=== PATIENT | male | born 1945 | race Caucasian/White ===

== ENCOUNTER 2021-01-09 07:07 | Outpatient (REF) | payer OTHER, SELFPAY ==
[2021-01-09 07:29] LABS: MANUAL DIFF FLAG NO
[2021-01-09 07:33] LABS: Basophils Percent Auto 0.8 % (0-2); Eosinophils Absolute Auto 0.2 X10*3/uL (0.0-0.4); Hematocrit 44.8 % (42-52); Hemoglobin 14.6 g/dl (14.0-18.0); Imm Gran Abs Auto 0.01 X10*3/uL (0.00-0.03); Imm Gran Pct Auto 0.2 % (0.0-0.4); Lymphocytes Absolute Auto 1.1 X10*3/uL (1.2-4.9); Lymphocytes Percent Auto 22.1 % (20-40); Mean Corpuscular HGB Conc 32.6 g/dl (31.0-36.0); Mean Corpuscular Hemoglobin 28.9 pg (27.0-33.0); Mean Corpuscular Volume 88.7 fL (80-98); Mean Platelet Volume 10.3 fL (9.4-12.4); Monocytes Absolute Auto 0.4 X10*3/uL (0.1-1.2); Monocytes Percent Auto 8.6 % (2-11); Neutrophils Absolute Auto 3.3 X10*3/uL (2.0-8.3); Neutrophils Percent Auto 65.3 % (45-73); Platelet Count 151 X10*3/uL (160-400); Red Blood Count 5.05 X10*6/uL (4.60-5.80)
[2021-01-09 08:01] LABS: Alanine Aminotransferase 29 U/L (0-40); Albumin Level 4.2 g/dL (3.5-5.0); Alkaline Phosphatase 58 U/L (39-117); Anion Gap 10 (12-20); Aspartate Amino Transferase 28 U/L (5-37); Bilirubin Total 0.8 mg/dL (0.0-1.0); Blood Urea Nitrogen 15 mg/dL (9-16); Carbon Dioxide 30 mmol/L (22-29); Chloride 104 mmol/L (96-108); Cholesterol 177 mg/dL; Estimated Glomerular Filt Rate > 60; Glucose Fasting 96 mg/dL (60-99); HDL Cholesterol 68 mg/dL; LDL Cholesterol Calculated 95 mg/dl; Potassium 4.6 mmol/L (3.3-5.1); Sodium 139 mmol/L (135-145); Total Protein 6.4 g/dL (6.5-8.0); Triglycerides 70 mg/dL
[2021-01-09 08:23] LABS: Prostate Specific Antigen 2.71 ng/mL (<0.05-4.0)
== END 2021-01-09 07:08 | disposition home or self-care (01) ==
LOC: HO.LAB 07:07
PROVIDERS: PCP Internal Medicine; Visit Provider Internal Medicine
DX: I10 Essential (primary) hypertension (principal); E78.00 Pure hypercholesterolemia, unspecified; N40.0 Benign prostatic hyperplasia without lower urinary tract symptoms; M19.90 Unspecified osteoarthritis, unspecified site; Z12.5 Encounter for screening for malignant neoplasm of prostate
CPT/HCPCS: 36415; 80053; 80061; 84153; 85025

== ENCOUNTER 2022-04-04 07:03 | Outpatient (REF) | payer OTHER, SELFPAY ==
[2022-04-04 07:11] LABS: MANUAL DIFF FLAG NO
[2022-04-04 08:11] LABS: Basophils Absolute Auto 0.1 X10*3/uL (0.0-0.2); Basophils Percent Auto 1.2 % (0-2); Eosinophils Absolute Auto 0.2 X10*3/uL (0.0-0.4); Eosinophils Percent Auto 3.3 % (0-4); Imm Gran Abs Auto 0.01 X10*3/uL (0.00-0.03); Imm Gran Pct Auto 0.2 % (0.0-0.4); Lymphocytes Absolute Auto 1.3 X10*3/uL (1.2-4.9); Lymphocytes Percent Auto 24.5 % (20-40); Mean Corpuscular HGB Conc 32.6 g/dl (31.0-36.0); Mean Corpuscular Hemoglobin 28.6 pg (27.0-33.0); Mean Corpuscular Volume 87.8 fL (80.0-98.0); Mean Platelet Volume 10.7 fL (9.4-12.4); Monocytes Absolute Auto 0.5 X10*3/uL (0.1-1.2); Monocytes Percent Auto 9.1 % (2-11); Neutrophils Absolute Auto 3.2 x10*3/uL (2.0-8.3); Neutrophils Percent Auto 61.7 % (45-73); Platelet Count 180 X10*3/uL (160-400); Red Blood Count 5.24 X10*6/uL (4.60-5.80); Red Cell Distribution Width 13.8 % (11.0-16.0); White Blood Count 5.2 X10*3/uL (4.8-10.8)
[2022-04-04 08:55] LABS: Alanine Aminotransferase 24 U/L (0-40); Albumin Level 4.2 g/dL (3.5-5.0); Alkaline Phosphatase 57 U/L (39-117); Anion Gap 16 (12-20); Aspartate Amino Transferase 29 U/L (5-37); Blood Urea Nitrogen 12 mg/dL (9-16); Calcium 8.7 mg/dL (8.4-10.2); Carbon Dioxide 25 mmol/L (22-29); Chloride 104 mmol/L (96-108); Cholesterol 181 mg/dL; Estimated Glomerular Filt Rate > 60; Glucose Fasting 84 mg/dL (60-99); HDL Cholesterol 68 mg/dL; LDL Cholesterol Calculated 95 mg/dl; Potassium 4.6 mmol/L (3.3-5.1); Sodium 140 mmol/L (135-145); Total Protein 6.5 g/dL (6.5-8.0); Triglycerides 90 mg/dL
[2022-04-04 09:02] LABS: Prostate Specific Antigen 2.19 ng/mL (<0.05-4.0)
== END 2022-04-04 07:04 | disposition home or self-care (01) ==
LOC: HO.LAB 07:03
PROVIDERS: PCP Internal Medicine; Visit Provider Internal Medicine
DX: Z12.5 Encounter for screening for malignant neoplasm of prostate (principal); I10 Essential (primary) hypertension; E78.00 Pure hypercholesterolemia, unspecified; R35.1 Nocturia
CPT/HCPCS: 36415; 80053; 80061; 84153; 85025

== ENCOUNTER 2022-04-27 13:30 | Outpatient (REF) | payer OTHER, SELFPAY ==
[2022-04-27 14:28] LABS: Influenza A PCR NEGATIVE (Negative); Influenza B PCR NEGATIVE (Negative); Resp Syncy Virus RNA Qual PCR NEGATIVE (Negative); SARS COV2 PCR INHOUSE POSITIVE (Negative)
== END 2022-04-27 13:31 | disposition home or self-care (01) ==
LOC: HO.LNP 13:30
PROVIDERS: Visit Provider Internal Medicine
DX: Z20.822 Contact with and (suspected) exposure to COVID-19 (principal)
CPT/HCPCS: 0241U

== ENCOUNTER 2022-05-13 09:37 | Outpatient (REF) | payer OTHER, SELFPAY ==
[2022-05-13 09:53] LABS: COVID-19 Test Positive (Negative); IDNOW Serial# 16C4AD1C
== END 2022-05-13 09:38 | disposition home or self-care (01) ==
LOC: HO.LNP 09:37
PROVIDERS: Visit Provider Internal Medicine
DX: Z20.822 Contact with and (suspected) exposure to COVID-19 (principal)
CPT/HCPCS: 87635

== ENCOUNTER 2022-05-18 09:56 | Outpatient (REF) | payer OTHER, SELFPAY ==
[2022-05-18 10:26] LABS: COVID-19 Test Negative (Negative); IDNOW Serial# 16C4AD1C
== END 2022-05-18 09:57 | disposition home or self-care (01) ==
LOC: HO.LNP 09:56
PROVIDERS: Visit Provider Internal Medicine
DX: Z20.822 Contact with and (suspected) exposure to COVID-19 (principal)
CPT/HCPCS: 87635

== ENCOUNTER 2023-04-11 14:51 | Outpatient (REF) | payer OTHER, SELFPAY ==
--- NOTE | ~2023-04-11 | US_ITS ---
EXAMINATION: US VENOUS ULTRASOUND WITH DOPPLER LOWER EXTREMITY, LEFT CLINICAL INFORMATION: Left lower extremity edema and swelling COMPARISON: None available. TECHNIQUE: Ultrasound of the deep veins is performed from the hip to the calf with compression sonography and color and pulse Doppler assessment. Spectral analysis with color-flow imaging is performed. FINDINGS: There is normal venous compression and respiratory variation and augmented flow. The visualized common femoral vein, superficial femoral vein, profunda femoral vein, popliteal vein, and the trifurcation region shows no evidence of deep venous thrombosis. There is a complex fluid collection in the calf measuring 6.3 x 1.5 x 2.1 cm. If the patient's symptoms persist, followup ultrasound in 5 days 7 days might be of value to exclude proximal propagation from a non-visualized calf vein. US/US venous duplex LE IMPRESSION: No DVT demonstrated in the left lower extremity.
== END 2023-04-11 14:52 | disposition home or self-care (01) ==
LOC: HO.US 14:51
PROVIDERS: PCP Internal Medicine; Visit Provider Internal Medicine
DX: R22.41 Localized swelling, mass and lump, right lower limb (principal)
CPT/HCPCS: 93971

== ENCOUNTER 2023-05-20 07:05 | Outpatient (REF) | payer OTHER, SELFPAY ==
[2023-05-20 07:33] LABS: MANUAL DIFF FLAG NO
[2023-05-20 08:03] LABS: Basophils Absolute Auto 0.1 X10*3/uL (0.0-0.2); Basophils Percent Auto 1.3 % (0-2); Eosinophils Absolute Auto 0.2 X10*3/uL (0.0-0.4); Eosinophils Percent Auto 3.5 % (0-4); Hematocrit 46.1 % (42.0-52.0); Hemoglobin 14.6 g/dl (14.0-18.0); Imm Gran Abs Auto 0.02 X10*3/uL (0.00-0.03); Imm Gran Pct Auto 0.4 % (0.0-0.4); Lymphocytes Absolute Auto 1.1 X10*3/uL (1.2-4.9); Lymphocytes Percent Auto 20.5 % (20-40); Mean Corpuscular HGB Conc 31.7 g/dl (31.0-36.0); Mean Corpuscular Hemoglobin 28.1 pg (27.0-33.0); Mean Corpuscular Volume 88.7 fL (80.0-98.0); Mean Platelet Volume 10.4 fL (9.4-12.4); Monocytes Absolute Auto 0.4 X10*3/uL (0.1-1.2); Monocytes Percent Auto 8.2 % (2-11); Neutrophils Absolute Auto 3.6 x10*3/uL (2.0-8.3); Neutrophils Percent Auto 66.1 % (45-73); Platelet Count 175 X10*3/uL (160-400); Red Cell Distribution Width 13.8 % (11.0-16.0); White Blood Count 5.4 X10*3/uL (4.8-10.8)
[2023-05-20 08:46] LABS: Alanine Aminotransferase 17 U/L (0-40); Albumin Level 4.1 g/dL (3.5-5.0); Alkaline Phosphatase 60 U/L (39-117); Anion Gap 14 (12-20); Aspartate Amino Transferase 20 U/L (5-37); Bilirubin Total 0.8 mg/dL (0.0-1.0); Blood Urea Nitrogen 12 mg/dL (9-16); Calcium 9.3 mg/dL (8.4-10.2); Carbon Dioxide 26 mmol/L (22-29); Chloride 105 mmol/L (96-108); Cholesterol 222 mg/dL (<200); Estimated Glomerular Filt Rate > 60; Glucose Random 92 mg/dL (60-115); HDL Cholesterol 66 mg/dL (>40); LDL Cholesterol Calculated 140 mg/dL (<100); Potassium 4.5 mmol/L (3.3-5.1); Sodium 140 mmol/L (135-145); Total Protein 6.5 g/dL (6.5-8.0); Triglycerides 83 mg/dL (<150)
== END 2023-05-20 07:06 | disposition home or self-care (01) ==
LOC: HO.LAB 07:05
PROVIDERS: PCP Internal Medicine; Visit Provider Internal Medicine
DX: I10 Essential (primary) hypertension (principal); N40.0 Benign prostatic hyperplasia without lower urinary tract symptoms; E78.00 Pure hypercholesterolemia, unspecified; Z12.5 Encounter for screening for malignant neoplasm of prostate; Z86.010 Personal history of colon polyps
CPT/HCPCS: 36415; 80053; 80061; 84153; 85025

== ENCOUNTER 2024-05-04 06:53 | Outpatient (REF) | payer OTHER, SELFPAY ==
[2024-05-04 07:14] LABS: MANUAL DIFF FLAG NO
[2024-05-04 08:25] LABS: Basophils Absolute Auto 0.1 X10*3/uL (0.0-0.2); Basophils Percent Auto 1.1 % (0-2); Eosinophils Absolute Auto 0.3 X10*3/uL (0.0-0.4); Eosinophils Percent Auto 4.6 % (0-4); Hematocrit 42.5 % (42.0-52.0); Hemoglobin 13.9 g/dl (14.0-18.0); Imm Gran Abs Auto 0.02 X10*3/uL (0.00-0.03); Imm Gran Pct Auto 0.4 % (0.0-0.4); Lymphocytes Absolute Auto 1.2 X10*3/uL (1.2-4.9); Lymphocytes Percent Auto 21.7 % (20-40); Mean Corpuscular HGB Conc 32.7 g/dl (31.0-36.0); Mean Corpuscular Hemoglobin 28.7 pg (27.0-33.0); Mean Corpuscular Volume 87.6 fL (80.0-98.0); Mean Platelet Volume 9.9 fL (9.4-12.4); Monocytes Absolute Auto 0.4 X10*3/uL (0.1-1.2); Monocytes Percent Auto 7.8 % (2-11); Neutrophils Absolute Auto 3.6 x10*3/uL (2.0-8.3); Neutrophils Percent Auto 64.4 % (45-73); Platelet Count 191 X10*3/uL (160-400); Red Blood Count 4.85 X10*6/uL (4.60-5.80); Red Cell Distribution Width 13.8 % (11.0-16.0); White Blood Count 5.6 X10*3/uL (4.8-10.8)
[2024-05-04 09:03] LABS: Alanine Aminotransferase 18 U/L (0-40); Albumin Level 3.9 g/dL (3.5-5.0); Alkaline Phosphatase 62 U/L (39-117); Anion Gap 10 (12-20); Aspartate Amino Transferase 22 U/L (5-37); Bilirubin Total 0.9 mg/dL (0.0-1.0); Blood Urea Nitrogen 13 mg/dL (9-16); Calcium 9.1 mg/dL (8.4-10.2); Carbon Dioxide 26 mmol/L (22-29); Chloride 105 mmol/L (96-108); Cholesterol 159 mg/dL (<200); Estimated Glomerular Filt Rate > 60; Glucose Random 87 mg/dL (60-115); HDL Cholesterol 57 mg/dL (>40); LDL Cholesterol Calculated 87 mg/dL (<100); Potassium 4.2 mmol/L (3.3-5.1); Sodium 137 mmol/L (135-145); Total Protein 6.3 g/dL (6.5-8.0); Triglycerides 79 mg/dL (<150)
[2024-05-04 09:08] LABS: Prostate Specific Antigen 2.69 ng/mL (<0.05-4.0)
== END 2024-05-04 06:54 | disposition home or self-care (01) ==
LOC: HO.LAB 06:53
PROVIDERS: PCP Internal Medicine; Visit Provider Internal Medicine
DX: I10 Essential (primary) hypertension (principal); E78.00 Pure hypercholesterolemia, unspecified; Z12.5 Encounter for screening for malignant neoplasm of prostate
CPT/HCPCS: 36415; 80053; 80061; 84153; 85025

== ENCOUNTER 2024-05-17 09:42 | Outpatient (REF) | payer OTHER, SELFPAY ==
[2024-05-17 11:57] LABS: Anion Gap 12 (12-20); Blood Urea Nitrogen 13 mg/dL (9-16); Calcium 8.7 mg/dL (8.4-10.2); Carbon Dioxide 28 mmol/L (22-29); Chloride 105 mmol/L (96-108); Estimated Glomerular Filt Rate > 60; Glucose Random 97 mg/dL (60-115); Potassium 4.6 mmol/L (3.3-5.1); Sodium 140 mmol/L (135-145)
[2024-05-17 12:06] LABS: Vitamin D 25-OH Total 45.3 ng/mL (>30)
== END 2024-05-17 09:43 | disposition home or self-care (01) ==
LOC: HO.LAB 09:42
PROVIDERS: PCP Internal Medicine; Visit Provider Internal Medicine
DX: I10 Essential (primary) hypertension (principal)
CPT/HCPCS: 36415; 80048; 82306

== ENCOUNTER 2024-12-18 08:41 | Outpatient (AMB) | payer OTHER, SELFPAY ==
--- NOTE | 2024-12-18 08:45 | A.OFFPC_ITS ---
Vital Signs 12/18/24 08:47 Height 5 ft 7 in Weight 182 lb BMI 28.5 BP 126/80 Blood Pressure Location Lt brachial Position Sitting Pulse 89 Pulse Source Pulse Oximeter Temp 98 F Temp Source Axillary Pulse Oximetry (%) 99 Oxygen Delivery Method Room Air Intake Visit Reasons: Routine Corn Shucker Required: No Accompanied by: Self / Same As Patient Allergies No Known Allergies Allergy (Verified 12/18/24 08:47) Tobacco use date assessed: 12/18/24 Fall risk assessment: No Falls in past year Last assessed Fall Risk: 12/18/24 Dental Screening Dental Screen Date: 12/18/24 Did you have a dental visit in the last 12 months?: Yes Did you have a dental problem in the last 6 months where you did not have access to dental care?: No [facility] Medical History (Updated 12/18/24 @ 09:20 by Yasmani Calderon MD) Essential hypertension Hyperlipidemia Low back pain Surgical History History of colonoscopy (~11/07/14) Family History (Updated 12/18/24 @ 08:57 by Jena Roland MA) Mother No problems noted. Father No problems noted. Social History Housing: House Patient Tobacco Use Status: Former Tobacco user e-Cigarette/Vaping Use: Former Use service: No Current occupational status: retired Cognitive needs: No Hearing needs: No Vision needs: No Questionnaire PHQ-9 Over the last 2 weeks, how often have you been bothered by any of the following problems? 1. Little interest or pleasure in doing things: not at all 2. Feeling down, depressed, or hopeless: not at all 3. Trouble falling or staying asleep, or sleeping too much: not at all 4. Feeling tired or having little energy: not at all 5. Poor appetite or overeating: not at all 6. Feeling bad about yourself - or that you are a failure or have let yourself or your family down: not at all 7. Trouble concentrating on things, such as reading the newspaper or watching television: not at all 8. Moving or speaking so slowly that other people could have noticed. Or the opposite - being so fidgety or restless that you have been moving around a lot more than usual: not at all 9. Thoughts that you would be better off or of hurting yourself in some way: not at all Total score: 0 Source: Developed by Drs. Yahir Willis, Jigna Kelly, Germain Johnson and colleagues, with an educational taj from [employer]. Thrive Questionnaire Date Thrive assessed: 12/18/24 I am a: Patient Within the past 12 months, did the food you bought not last and you didn't have the money to get more?: Never true Within the past 12 months, did you worry whether your food would run out before you got money to buy more?: Never true Do you have trouble paying for medicines?: No Do you have trouble getting transportation to medical appointments?: No Do you have trouble paying your heating and electricity bill?: No Do you have trouble taking care of your child, family member or friend?: No Do you have trouble with day-to-day activities such as bathing, preparing meals, shopping, managing finances, etc.?: No Are you currently unemployed and looking for a job?: No Are you interested in more education?: No THRIVE Score: 0 AUDIT C Alcohol Use Questionnaire (AUDIT-C) 1. How often do you have a drink containing alcohol?: Monthly or less 2. How many drinks containing alcohol do you have on a typical day when you are drinking?: 1 or 2 3. How often do you have six or more drinks on one occasion?: Less than monthly Total Score: 2 LUX-7 AMB Questionnaire LUX-7 Date LUX - 7 assessed: 12/18/24 Feeling nervous, anxious, or on edge: 0 = Not at all Not being able to stop or control worryin = Not at all Worrying too much about different things: 0 = Not at all Trouble relaxin = Not at all Being so restless that it is hard to sit still: 0 = Not at all Becoming easily annoyed or irritable: 0 = Not at all Feeling afraid as if something awful might happen: 0 = Not at all Total LUX-7 score (0-4 normal; 5-9 mild; 10-14 moderate; 15-21 severe): 0 Source: Developed by Jigna Castellano.W. Robin, Germain mccoy nd colleagues, with an educational taj from [employer]. Physical exam (Primary Care) Vital Signs: Last Vital Signs Temp 98 F 12/18/24 08:47 Pulse 89 12/18/24 08:47 BP 126/80 12/18/24 08:47 Pulse Ox 99 12/18/24 08:47 Oxygen Delivery Method Room Air 12/18/24 08:47 BMI result Body Mass Index 28.5 Tobacco/Smoking Status: Tobacco use Status Tobacco use date assessed 12/18/24 12/18/24 08:49 Patient Tobacco Use Status Former Tobacco user 12/18/24 08:58 e-Cigarette/Vaping Use Former Use 12/18/24 08:58 PHQ-9: PHQ-9 Score PHQ-9: Total score 0 12/18/24 08:58 Thrive Assessment: Date of Thrive Assessment Date Thrive assessed 12/18/24 12/18/24 08:49 Coding Level of Care Code New Pt Level 4 (60928) Complex EM visit Add On G2211 Diagnoses Low back pain M54.50 Hyperlipidemia E78.5 Essential hypertension I10 Assessment & Plan Assessment & Plan (1) Low back pain: Code(s): M54.50 - Low back pain, unspecified Category: Medical Plan: ES tylenol and muscle relaxants suggested. PT suggested (2) Hyperlipidemia: Code(s): E78.5 - Hyperlipidemia, unspecified Category: Medical Plan: BW ordered. Based on results, statin dosage will be adjusted. (3) Essential hypertension: Code(s): I10 - Essential (primary) hypertension Category: Medical Plan: BP in range. Continue current meds Plan History of Present Illness The patient is an 79-year-old male presenting with lower back pain. The onset of the symptoms occurred in May following heavy lifting activities. Initially suspecting a lumbar strain, the patient noted persistent pain despite self- treatment, primarily in the mornings with stiffness and limited mobility that improves throughout the day. An X-ray in June confirmed arthritis. The patient found the treatment advice given, namely the use of Tylenol and exercises, insufficient. The patient reports interaction with multiple healthcare providers on this issue but expresses dissatisfaction with the outcome. He remains concerned about the arthritis worsening. This visit is marked by his inquiry into the appropriateness of his attempts at self-treatment and consideration of starting physical therapy as part of the management. He also notes he experiences intermittent non-specific achiness elsewhere and is worried about a possible ulcer due to his dietary habits, although specific gastrointestinal symptoms were not noted. 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 - Activity: The patient engages in some exercise but seeks clarification on physical therapy for his back pain. - Nutrition: Drinks tea and coffee regularly; mentions trying to lose weight, with some success in reducing fat. Review of Systems - Musculoskeletal: Reports lower back pain with morning stiffness. - Gastrointestinal: Denies belching or food-related discomfort; reports occasional achiness. - Neurological: Denies significant issues post-carpal tunnel surgeries. - Dermatological: History of basal cell carcinoma removal. - Cardiovascular: Reports controlled blood pressure on medication. Physical Exam General: Cooperative and healthy appearing Nutritional Appearance: Well nourished Orientation/consciousness: Patient oriented x3 Limitations: No limitations Head: Normal to inspection General: Appearance normal, both eyes and all related structures Neck: Normal visual inspection Chest: Normal palpation of entire chest wall Respiratory: N ormal respiratory effort Neurology: Patient oriented x3, reports lower back pain, stiffness in the morning, improves after an hour. Results - Imaging: X-ray revealed arthritis in the lumbar region (discussed from the orthopedic consult). Plan The patient will initiate treatment with Extra Strength Tylenol at night and begin taking a prescribed muscle relaxant to improve the management of lower back pain. Referral to physical therapy will help address osteoarthritis and lumbar strain. We agreed to maintain the current therapy of antihypertensive and statin medications while continuing cholesterol and blood pressure monitoring. Due to safety concerns, I've advised fasting blood work soon. Emotional well- being was addressed, and strategies discussed. The patient?s quality of life will be assessed continually as part of the broader management plan. Patient was informed and verbally consented to the use of an ambient scribe for clinic note documentation during this visit. 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 Risks include potential gastrointestinal irritation with frequent NSAID use. I explained the role of physical therapy in improving function and quality of life. The patient expressed concern over the risks of arthritis progression and I assured him that treatment should mitigate impact. We discussed his emotional state related to travel inability due to age but prioritized physical health and safety. I agreed to perform fasting blood t ests in the coming weeks. Continual monitoring of blood pressure and lipid levels will guide the management of hypertension and hyperlipidemia. We also considered lifestyle impact on emotional health and discussed practical support strategies. Patient Instructions - Take 500 mg of Extra Strength Tylenol at night; may increase to 2 if pain persists. - Start muscle relaxant at night to ease back pain. - Attend physical therapy at the hospital. - Continue lisinopril and simvastatin as directed. - Schedule and complete a blood test after fasting. - Report any worsening symptoms or new issues. - Consider lifestyle changes for emotional well-being; focus on support networks. - Follow up with changes in health status or for significant concerns. Orders: Orders Basic Metabolic Panel Today M54.50 - Low back pain, unspecified Lipid Panel Today M54.50 - Low back pain, unspecified Liver Panel Today M54.50 - Low back pain, unspecified Complete Blood Count no Diff Today M54.50 - Low back pain, unspecified Thyroid Stimulating Hormone Today M54.50 - Low back pain, unspecified UA and rflx microscopic Today M54.50 - Low back pain, unspecified PT Evaluation and Treatment Today M54.50 - Low back pain, unspecified Medications: New simvastatin 40 mg PO DAILY 90 tabs 1RF cyclobenzaprine 10 mg PO BEDTIME 14 tabs 0RF lisinopril 5 mg PO DAILY 90 tabs 1RF
[2024-12-18 08:47] VITALS: BP 126/80; PULSE 89; TEMP 36.6; O2SAT 99; BMI 28.5
== END 2024-12-18 09:17 | disposition home or self-care (01) ==
LOC: HO.HMCHD 08:41
PROVIDERS: PCP Internal Medicine; Visit Provider Internal Medicine
DX: M54.50 Low back pain, unspecified (principal); E78.5 Hyperlipidemia, unspecified; I10 Essential (primary) hypertension

== ENCOUNTER → 2024-12-18 08:41 | Outpatient (BNVA) | payer OTHER, SELFPAY | PROVIDERS: PCP Internal Medicine; Visit Provider Internal Medicine | DX: Z13.89 Encounter for screening for other disorder (principal) ==

== ENCOUNTER 2024-12-23 07:26 | Outpatient (REF) | payer OTHER, SELFPAY ==
[2024-12-23 08:04] LABS: Hematocrit 46.1 % (42.0-52.0); Hemoglobin 15.1 g/dl (14.0-18.0); Mean Corpuscular HGB Conc 32.8 g/dl (31.0-36.0); Mean Corpuscular Hemoglobin 28.6 pg (27.0-33.0); Mean Corpuscular Volume 87.3 fL (80.0-98.0); Mean Platelet Volume 9.9 fL (9.4-12.4); Platelet Count 188 X10*3/uL (160-400); Red Blood Count 5.28 X10*6/uL (4.60-5.80); Red Cell Distribution Width 13.7 % (11.0-16.0); White Blood Count 5.8 X10*3/uL (4.8-10.8)
[2024-12-23 08:13] LABS: Appearance Urine Clear; Color Urine Yellow; Glucose Urine UA Negative (Negative); Leukocyte Esterase Urine Negative (Negative); Nitrite Urine Negative (Negative); PH 6.5 (5.0-9.0); Specific Gravity - Urine 1.015 (1.005-1.025); Urine Blood Negative (Negative); Urine Ketones Trace mg/dL (Negative); Urine Protein Negative (Neg-Trace)
[2024-12-23 08:39] LABS: Alanine Aminotransferase 35 U/L (0-40); Albumin Level 4.2 g/dL (3.5-5.0); Alkaline Phosphatase 67 U/L (39-117); Anion Gap 12 (12-20); Aspartate Amino Transferase 41 U/L (5-37); Bilirubin Direct 0.2 mg/dL (0.0-0.5); Bilirubin Total 0.8 mg/dL (0.0-1.0); Blood Urea Nitrogen 12 mg/dL (9-16); Calcium 9.1 mg/dL (8.4-10.2); Carbon Dioxide 28 mmol/L (22-29); Chloride 103 mmol/L (96-108); Cholesterol 187 mg/dL (<200); Estimated Glomerular Filt Rate > 60; Glucose Random 87 mg/dL (60-115); HDL Cholesterol 70 mg/dL (>40); LDL Cholesterol Calculated 99 mg/dL (<100); Potassium 4.3 mmol/L (3.3-5.1); Sodium 139 mmol/L (135-145); Total Protein 6.6 g/dL (6.5-8.0); Triglycerides 91 mg/dL (<150)
== END 2024-12-23 07:27 | disposition home or self-care (01) ==
LOC: HO.LAB 07:26
PROVIDERS: PCP Internal Medicine; Visit Provider Internal Medicine
DX: M54.50 Low back pain, unspecified (principal)
CPT/HCPCS: 36415; 80048; 80061; 80076; 81003; 84443; 85027

== ENCOUNTER 2025-01-15 09:07 | Outpatient (AMB) | payer OTHER, SELFPAY ==
--- NOTE | 2025-01-07 15:22 | MHC.PC.OV ---
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 Hand Required: No Accompanied by: Self / Same As Patient Allergies No Known Allergies Allergy (Verified 01/07/25 15:22) Tobacco use date assessed: 01/08/25 Fall risk assessment: No Falls in past year Last assessed Fall Risk: 01/08/25 Dental Screening Dental Screen Date: 01/08/25 Did you have a dental visit in the last 12 months?: Yes Did you have a dental problem in the last 6 months where you did not have access to dental care?: No [facility] Medical History Essential hypertension Hyperlipidemia Low back pain Surgical History History of colonoscopy (~11/07/14) Family History Mother No problems noted. Father No problems noted. Social History Housing: House Patient Tobacco Use Status: Former Tobacco user e-Cigarette/Vaping Use: Former Use service: No Current occupational status: retired Cognitive needs: No Hearing needs: No Vision needs: No Questionnaire PHQ-9 Over the last 2 weeks, how often have you been bothered by any of the following problems? 1. Little interest or pleasure in doing things: not at all 2. Feeling down, depressed, or hopeless: not at all 3. Trouble falling or staying asleep, or sleeping too much: not at all 4. Feeling tired or having little energy: not at all 5. Poor appetite or overeating: not at all 6. Feeling bad about yourself - or that you are a failure or have let yourself or your family down: not at all 7. Trouble concentrating on things, such as reading the newspaper or watching television: not at all 8. Moving or speaking so slowly that other people could have noticed. Or the opposite - being so fidgety or restless that you have been moving around a lot more than usual: not at all 9. Thoughts that you would be better off or of hurting yourself in some way: not at all Total score: 0 Source: Developed by Drs. Yahir Willis, Germain Zaman and colleagues, with an educational taj from [employer]. Thrive Questionnaire Date Thrive assessed: 01/08/25 I am a: Patient Within the past 12 months, did the food you bought not last and you didn't have the money to get more?: Never true Within the past 12 months, did you worry whether your food would run out before you got money to buy more?: Never true Do you have trouble paying for medicines?: No Do you have trouble getting transportation to medical appointments?: No Do you have trouble paying your heating and electricity bill?: No Do you have trouble taking care of your child, family member or friend?: No Do you have trouble with day-to-day activities such as bathing, preparing meals, shopping, managing finances, etc.?: No Are you currently unemployed and looking for a job?: No Are you interested in more education?: No THRIVE Score: 0 AUDIT C Alcohol Use Questionnaire (AUDIT-C) 1. How often do you have a drink containing alcohol?: Never 3. How often do you have six or more drinks on one occasion?: Never Total Score: 0 LUX-7 AMB Questionnaire LUX-7 Date LUX - 7 assessed: 01/08/25 Feeling nervous, anxious, or on edge: 0 = Not at all Not being able to stop or control worryin = Not at all Worrying too much about different things: 0 = Not at all Trouble relaxin = Not at all Being so restless that it is hard to sit still: 0 = Not at all Becoming easily annoyed or irritable: 0 = Not at all Feeling afraid as if something awful might happen: 0 = Not at all Total LUX-7 score (0-4 normal; 5-9 mild; 10-14 moderate; 15-21 severe): 0 Source: Developed by Drs. Yahir Willis, Germain Zaman and colleagues, with an educational taj from [employer]. Physical exam (Primary Care) Tobacco/Smoking Status: Tobacco use Status Tobacco use date assessed 12/18/24 12/18/24 08:49 Patient Tobacco Use Status Former Tobacco user 12/18/24 08:58 e-Cigarette/Vaping Use Former Use 12/18/24 08:58 Thrive Assessment: Date of Thrive Assessment Date Thrive assessed 12/18/24 12/18/24 08:49 Coding
[2025-01-15 09:10] VITALS: BP 124/72; PULSE 72; TEMP 36.6; O2SAT 99; BMI 29.1
--- NOTE | 2025-01-15 09:10 | MHC.PC.OV ---
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 Accompanied by: Self / Same As Patient Allergies No Known Allergies Allergy (Verified 01/15/25 09:42) Medication List - Last Reconciled 01/15/25 by Yasmani Calderon MD lisinopril 5 mg PO DAILY omeprazole 20 mg PO DAILY simvastatin 40 mg PO DAILY Tobacco use date assessed: 01/15/25 Fall risk assessment: No Falls in past year Last assessed Fall Risk: 01/15/25 Dental Screening Dental Screen Date: 01/15/25 Did you have a dental visit in the last 12 months?: Yes Did you have a dental problem in the last 6 months where you did not have access to dental care?: No [facility] Medical History Essential hypertension Hyperlipidemia Low back pain Surgical History History of colonoscopy (~11/07/14) Family History Mother No problems noted. Father No problems noted. Social History Housing: House Patient Tobacco Use Status: Former Tobacco user e-Cigarette/Vaping Use: Former Use service: No Current occupational status: retired Cognitive needs: No Hearing needs: No Vision needs: No Questionnaire PHQ-9 Over the last 2 weeks, how often have you been bothered by any of the following problems? 1. Little interest or pleasure in doing things: not at all 2. Feeling down, depressed, or hopeless: not at all 3. Trouble falling or staying asleep, or sleeping too much: not at all 4. Feeling tired or having little energy: not at all 5. Poor appetite or overeating: not at all 6. Feeling bad about yourself - or that you are a failure or have let yourself or your family down: not at all 7. Trouble concentrating on things, such as reading the newspaper or watching television: not at all 8. Moving or speaking so slowly that other people could have noticed. Or the opposite - being so fidgety or restless that you have been moving around a lot more than usual: not at all 9. Thoughts that you would be better off or of hurting yourself in some way: not at all Total score: 0 Depression Screening Interpretation: Negative Depression Screening Done: Yes Source: Developed by Drs. Yahir Willis, Jigna Kelly, Germain Johnson and colleagues, with an educational taj from [employer]. Thrive Questionnaire Date Thrive assessed: 01/15/25 I am a: Patient Within the past 12 months, did the food you bought not last and you didn't have the money to get more?: Never true Within the past 12 months, did you worry whether your food would run out before you got money to buy more?: Never true Do you have trouble paying for medicines?: No Do you have trouble getting transportation to medical appointments?: No Do you have trouble paying your heating and electricity bill?: No Do you have trouble taking care of your child, family member or friend?: No Do you have trouble with day-to-day activities such as bathing, preparing meals, shopping, managing finances, etc.?: No Are you currently unemployed and looking for a job?: No Are you interested in more education?: No Currently or been in a relationship where the following occur: No concerns reported THRIVE Score: 0 AUDIT C Alcohol Use Questionnaire (AUDIT-C) 1. How often do you have a drink containing alcohol?: Never 3. How often do you have six or more drinks on one occasion?: Never Total Score: 0 LUX-7 AMB Questionnaire LUX-7 Date LUX - 7 assessed: 01/15/25 Feeling nervous, anxious, or on edge: 0 = Not at all Not being able to stop or control worryin = Not at all Worrying too much about different things: 0 = Not at all Trouble relaxin = Not at all Being so restless that it is hard to sit still: 0 = Not at all Becoming easily annoyed or irritable: 0 = Not at all Feeling afraid as if something awful might happen: 0 = Not at all Total LUX-7 score (0-4 normal; 5-9 mild; 10-14 moderate; 15-21 severe): 0 Source: Developed by Drs. Yahir Willis, Jigna Kelly, Germain Johnson and colleagues, with an educational taj from [employer]. Physical exam (Primary Care) Vital Signs: Last Vital Signs Temp 97.9 F 01/15/25 09:10 Pulse 72 01/15/25 09:10 BP 124/72 01/15/25 09:10 Pulse Ox 99 01/15/25 09:10 Oxygen Delivery Method Room Air 01/15/25 09:10 Care Plan Goal for BP management: BP is in range BMI result Body Mass Index 29.1 Tobacco/Smoking Status: Tobacco use Status Tobacco use date assessed 01/15/25 01/15/25 09:12 Patient Tobacco Use Status Former Tobacco user 01/15/25 09:12 e-Cigarette/Vaping Use Former Use 01/15/25 09:12 PHQ-9: PHQ-9 Score PHQ-9: Total score 0 01/15/25 09:30 Depression Screening Interpretation: Negative Thrive Assessment: Date of Thrive Assessment Date Thrive assessed 01/15/25 01/15/25 09:12 Currently or been in a relationship where the following occur: No concerns reported Advance Care Planning discussion: Exists, not on file Date of discussion: 01/15/25 Who was present: Patient Time spent: 1-15 minutes, not on file Actual minutes spent: 5 Coding Level of Care Code Est Pt Level 4 (77816) Complex EM visit Add On G2211 Diagnoses Low back pain M54.50 Additional Codes Vital Signs *Quality* - Advance Care Planning discussion: Exists, not on file ([id number]) Vital Signs *Quality* - Time spent: 1-15 minutes, not on file ([id number]) Assessment & Plan Assessment & Plan (1) Low back pain: Code(s): M54.50 - Low back pain, unspecified Category: Medical Plan: Encouraged patient to keep PT appt. Muscle relaxants have been stopped. Stretching exercises suggested. Plan History of Present Illness The patient is an 79-year-old male presenting with back pain. The back pain was previously managed with a muscle relaxant and Tylenol. After one dose of the muscle relaxant, he experienced sweating and discontinued its use. He feels the condition is manageable without it. The discomfort is most pronounced upon waking and improves with movement. He plans to start physical therapy next week. The patient also has seasonal allergies, for which he uses generic Benadryl and Flonase, although the relief is temporary. In addition, he experiences stress due to caregiving responsibilities for his siblings, which affects his sleep pattern. Social History - Resides with two younger siblings and acts as their primary caregiver. - Inherited the family house and included siblings in the deed for future security. - Reports managing stress related to family responsibilities and caregiving. - Sleep pattern is erratic, sleeping about 5-6 hours nightly. - Does not consume fatty foods; reported weight gain despite controlled diet. - Exercises and maintains active daily activities. Review of Systems - Musculoskeletal: Reports back pain, most notable in the morning. - Allergy/Immunology: Reports seasonal allergies responsive to Benadryl and Flonase. - Neurological: Reports erratic sleep patterns. - Psychological: Denies depression and states feeling generally happy; reports stress related to caregiving responsibilities. Physical Exam General: Cooperative and healthy appearing Nutritional Appearance: Well nourished Orientation/consciousness: Patient oriented x3 Limitations: No limitations Head: Normal to inspection General: Appearance normal, both eyes and all related structures Neck: Normal visual inspection Chest: Normal palpation of entire chest wall Respiratory: N ormal respiratory effort Neurology: Patient oriented x3, reports erratic sleeping patterns but is not depressed. Results Plan 1. Back Pain - Initiate physical therapy next week. - Avoid medication unless necessary. 2. Seasonal Allergies - Utilize antihistamines and nasal spray; consider generic for cost. 3. Insomnia - Stabilize sleep patterns; explore sleep hygiene methods. 4. Stress - Manage stress through activity; acknowledge caregiving role. Discussion Notes During the visit, I discussed the management of back pain with the patient, including the cessation of muscle relaxants due to side effects, and advised the continuation of planned physical therapy sessions. We also explored seasonal allergy management with [id number] medications and acknowledged cost-effective options. I emphasized the importance of maintaining an active lifestyle for stress and noted his sleep challenges. I encouraged methods to improve sleep hygiene, recognizing his caregiving duties and their potential impact on stress levels. Patient Instructions - Attend physical therapy sessions as scheduled. - Take antihistamines and nasal sprays for allergies as needed. - Maintain an active daily routine to help manage stress. - Try to go to bed and wake up at the same time every day. - Call the pharmacy for medication refills; they will contact my office if necessary. - Return to the clinic if symptoms worsen or do not improve.
== END 2025-01-15 09:44 | disposition home or self-care (01) ==
LOC: HO.HMCHD 09:07
PROVIDERS: PCP Internal Medicine; Visit Provider Internal Medicine
DX: M54.50 Low back pain, unspecified (principal); Z00.00 Encounter for general adult medical examination without abnormal findings

== ENCOUNTER → 2025-01-15 09:07 | Outpatient (BNVA) | payer OTHER, SELFPAY | PROVIDERS: PCP Internal Medicine; Visit Provider Internal Medicine ==

== ENCOUNTER 2025-02-19 10:00 | Outpatient (RCR) | payer OTHER, SELFPAY ==
--- NOTE | 2025-01-23 10:40 | MHC.PT.EP ---
[facility] [place] Office [place] [facility] [place] Office [address] [phone] F: [phone] F: [phone] F: [phone] F: [phone] Physical Therapy Plan of Care Date of Evaluation: 01/23/25 Date of Surgery: n/a Diagnosis: low back pain Assessment: Patient is a 79 year old male presenting to PT with complaints of pain in his low back. Pt reports onset of pain began May 2024 due to doing some work around the house. He presents today with impairments in pain, ROM, hip strength, posture. Pt's current occupation is retired, with baseline physical activities including ADLs, household duties. Pt expresses buttermaker goal of reducing pain, and is motivated to work towards this in PT. Clinical presentation today is most consistent with signs and sx associated with low back pain and pt will benefit from skilled PT 2 week x 4 weeks to address the following problems and impairments noted upon evaluation: pain, ROM, hip strength, posture. These problems limit the patient with the following functional activities: ADLs, household duties. The prescribed treatment plan of care is medically necessary. Co-morbidities of HTN were identified and taken into considerations of plan of care. Pt was educated on HEP, role of PT, prognosis, POC. Frequency and Duration: The patient will be seen 2 x week x 4 weeks Short Term Goals: Pt will demonstrate improved hip MMT strength by 1/3 grade in 2 weeks. Pt will demonstrate reports of less achiness in the morning in 2 weeks. Fdc Goals: Pt will demonstrate ability to complete household duties with min to no pain in 4 weeks for return to PLOF. Pt will demonstrate ability to stand with min to no pain in 4 weeks for return to PLOF. Treatment Plan: Modalities to reduce pain, spasms and effusion. Manual therapy to restore motion and function. Therapeutic exercise to improve strength and flexibility. Neuromuscular re-education for posture and balance. Therapeutic activities to return to functional activities of daily living. Electronically signed by: Maren Marie, PT, DPT, ATC Please sign and return to therapist. Thank you for your referral.
--- NOTE | 2025-02-19 10:32 | MHC.PT.DC ---
[facility] Office [place] Office [place] Office [address] Josie Roldan [address] [phone] F: [phone] F: [phone] F: [phone] F: [phone] Physical Therapy Discharge Report Diagnosis: low back pain Date of Surgery: n/a Date of Evaluation: 01/23/25 Date of Discharge: 02/19/25 Treatments to Date: 5 Cancellations to Date: 0 No Shows to Date: 0 Discharge Status: Achieved Goals Improved Function Independent with HEP Discharge Summary: 02/19/2025: Pt has made progress since start of care. He has not had any pain recently, only stiffness in the mornings which is consistent with his arthritis. He is independent and compliant with his HEP. At this time max benefits of PT have been provided and skilled PT is no longer indicated. I recommend he continues with his HEP at home to maintain all gains. He is in agreement with d/c today. Electronically signed by: Maren Marie, PT, DPT, ATC Please sign and return to therapist. Thank you for your referral.
== END 2025-02-19 10:33 | disposition home or self-care (01) ==
LOC: HO.PTCHIC 10:00
PROVIDERS: PCP Internal Medicine; Visit Provider Internal Medicine
DX: M54.50 Low back pain, unspecified (principal)
CPT/HCPCS: 97110; 97161

== ENCOUNTER 2025-06-11 08:59 | Outpatient (AMB) | payer OTHER, SELFPAY ==
[2025-06-11 08:04] VITALS: BP 130/80; PULSE 71; TEMP 36.4; O2SAT 98; BMI 26.5
--- NOTE | 2025-06-11 08:04 | A.OFFPC_ITS ---
Vital Signs 06/11/25 08:04 Height 5 ft 7 in Weight 169 lb BMI 26.5 BP 130/80 Blood Pressure Location Rt brachial Position Sitting Pulse 71 Pulse Source Pulse Oximeter Temp 97.5 F Temp Source Temporal Artery Scan Pulse Oximetry (%) 98 Oxygen Delivery Method Room Air Intake Visit Reasons: Medication f/u Board Certified Family Physician Required: No Accompanied by: Self / Same As Patient Allergies No Known Allergies Allergy (Verified 06/11/25 08:04) Medication List - Last Reconciled 06/11/25 by NATHAN Anton lisinopril 5 mg PO DAILY simvastatin 40 mg PO DAILY Tobacco use date assessed: 06/11/25 Fall risk assessment: No Falls in past year Last assessed Fall Risk: 06/11/25 Dental Screening Dental Screen Date: 06/11/25 Did you have a dental visit in the last 12 months?: Yes Did you have a dental problem in the last 6 months where you did not have access to dental care?: No HPI HPI Comments History of Present Illness Details The patient is an 80-year-old male with HTN, HLD and GERD presenting to [facility] and with lumbar stiffness and achiness. The issue began in May of the previous year, following yard work and lifting activities, and has persisted since then. An x-ray at [facility] revealed arthritis, and the patient was advised to take Tylenol for symptom management. He has been taking Aleve instead because it lasts longer. He is on Lisinopril 5mg for HTN. His BP today was 130/80. Hew is on Simvastatin 40mg and would like to consider reducing his dosage. He takes Omeprazole PRN for GERD. The patient reports that the stiffness and achiness are localized to the lower lumbar region, described as stiffness rather than pain. Symptoms improve with movement throughout the day, and the patient has been performing exercises learned from physical therapy. The patient has attempted various interventions, including physical therapy, acupuncture, and palliative care nurse, with limited success in alleviating symptoms. The patient has also modified his exercise routine to include pull-ups at the kitchen sink to help loosen the lumbar region. He went to [facility] with his brother for an appointment and was advised to get an MRI and a referral to Dr. Araujo. The patient reports balance issues, which he attributes to the lumbar stiffness, and has noted a change in his gait as observed by his sister. He has been using a cane. He has reduced his intake of Aleve because he is not sure if it is helping. Due to taking Aleve for several months there is concern about kidney function and has been advised to undergo blood work to monitor this. Patient was informed and verbally consented to the use of an ambient scribe for clinic note documentation during this visit. [facility] Medical History Essential hypertension Hyperlipidemia Low back pain Surgical History History of colonoscopy (~11/07/14) Family History (Updated 06/11/25 @ 09:08 by Jena Roland MA) Mother No problems noted. Father No problems noted. Social History Housing: House Patient Tobacco Use Status: Former Tobacco user e-Cigarette/Vaping Use: Former Use service: No Current occupational status: retired Cognitive needs: Yes (cane) Hearing needs: No Vision needs: No Questionnaire PHQ-9 Over the last 2 weeks, how often have you been bothered by any of the following problems? 1. Little interest or pleasure in doing things: not at all 2. Feeling down, depressed, or hopeless: not at all 3. Trouble falling or staying asleep, or sleeping too much: not at all 4. Feeling tired or having little energy: not at all 5. Poor appetite or overeating: not at all 6. Feeling bad about yourself - or that you are a failure or have let yourself or your family down: not at all 7. Trouble concentrating on things, such as reading the newspaper or watching television: not at all 8. Moving or speaking so slowly that other people could have noticed. Or the opposite - being so fidgety or restless that you have been moving around a lot more than usual: not at all 9. Thoughts that you would be better off or of hurting yourself in some way: not at all Total score: 0 Depression Screening Interpretation: Negative Depression Screening Done: Yes Source: Developed by Drs. Yahir Willis, Jigna Kelly, Germain Johnson and colleagues, with an educational taj from [employer]. Thrive Questionnaire Date Thrive assessed: 06/11/25 I am a: Patient Within the past 12 months, did the food you bought not last and you didn't have the money to get more?: Never true Within the past 12 months, did you worry whether your food would run out before you got money to buy more?: Never true Do you have trouble paying for medicines?: No Do you have trouble getting transportation to medical appointments?: No Do you have trouble paying your heating and electricity bill?: No Do you have trouble taking care of your child, family member or friend?: No Do you have trouble with day-to-day activities such as bathing, preparing meals, shopping, managing finances, etc.?: No Are you currently unemployed and looking for a job?: No Are you interested in more education?: No THRIVE Score: 0 AUDIT C Alcohol Use Questionnaire (AUDIT-C) 1. How often do you have a drink containing alcohol?: Monthly or less 2. How many drinks containing alcohol do you have on a typical day when you are drinking?: 1 or 2 3. How often do you have six or more drinks on one occasion?: Less than monthly Total Score: 2 LUX-7 AMB Questionnaire LUX-7 Date LUX - 7 assessed: 06/11/25 Feeling nervous, anxious, or on edge: 0 = Not at all Not being able to stop or control worryin = Not at all Worrying too much about different things: 0 = Not at all Trouble relaxin = Not at all Being so restless that it is hard to sit still: 0 = Not at all Becoming easily annoyed or irritable: 0 = Not at all Feeling afraid as if something awful might happen: 0 = Not at all Total LUX-7 score (0-4 normal; 5-9 mild; 10-14 moderate; 15-21 severe): 0 Source: Developed by Drs. Yahir Willis, Jigna Kelly, Germain Johnson and colleagues, with an educational taj from [employer]. Review of Systems Const Details: CONSTITUTIONAL No fever HEAD/NECK Negative RESPIRATORY Negative CARDIOVASCULAR Negative GASTROINTESTINAL Negative MUSCULOSKELETAL Reports lumbar stiffness and achiness, balance issues NEUROLOGICAL Denies radiating pain to legs PSYCHIATRIC Negative Physical exam (Primary Care) Vital Signs: Last Vital Signs Temp 97.5 F 06/11/25 08:04 Pulse 71 06/11/25 08:04 BP 130/80 06/11/25 08:04 Pulse Ox 98 06/11/25 08:04 Oxygen Delivery Method Room Air 06/11/25 08:04 BMI result Body Mass Index 26.5 GENERAL Well developed, Well nourished, in no apparent distress HEENT Head-Normocephalic Neck- Supple, No lymphadenopathy, thyroid WNL RESPIRATORY Normal I:E, Clear to auscultation CARDIOVASCULAR Regular, rate and rhythm, No murmurs or rubs GASTROINTESTINAL Soft, nontender, normal bowel sounds, no masses MUSCULOSKELETAL Back-Decreased ROM, Tender in Lumbar, Straight leg raise negative, DTR 2+ symmetrical, Gait slow with cane Joints- no pain swelling or deformity NEUROLOGICAL Gait low with cane PSYCHIATRIC Oriented to person, place and time Mood and affect WNL Appearance WNL Speech WNL Thought processes WNL Tobacco/Smoking Status: Tobacco use Status Tobacco use date assessed 06/11/25 06/11/25 08:07 Patient Tobacco Use Status Former Tobacco user 06/11/25 08:07 e-Cigarette/Vaping Use Former Use 06/11/25 08:07 PHQ-9: PHQ-9 Score PHQ-9: Total score 0 06/11/25 09:10 Depression Screening Interpretation: Negative Thrive Assessment: Date of Thrive Assessment Date Thrive assessed 06/11/25 06/11/25 08:07 Coding Level of Care Code Established Pt Est Pt Level 4 (38208) Patient Type Established Diagnoses Essential hypertension I10 Pure hypercholesterolemia E78.00 Hyperlipidemia type: pure hypercholesterolemia Chronic bilateral low back pain without sciatica M54.50; G89.29 Chronicity: chronic Back pain laterality: bilateral Sciatica presence: without sciatica Time Spent (min) 30 Comment Time spent on chart review, medication reconciliation, H&P, patient education and orders Assessment & Plan Assessment & Plan (1) Essential hypertension: Comment: BP today was 130/80 Code(s): I10 - Essential (primary) hypertension Category: Medical Plan: Controlled. Patient will continue current medications. Will monitor. Patient will follow up in 6 months. (2) Hyperlipidemia: Code(s): E78.5 - Hyperlipidemia, unspecified Category: Medical Qualifiers: Hyperlipidemia type: pure hypercholesterolemia Qualified Code(s): E78.00 - Pure hypercholesterolemia, unspecified Plan: Will get labs. Patient will continue current medications. Will monitor. Patient will follow up in 6 months. (3) Low back pain: Comment: Patient has completed PT, Chiropractic and Acupuncture without relief. He has been having pain for the past year Code(s): M54.50 - Low back pain, unspecified Category: Medical Qualifiers: Chronicity: chronic Back pain laterality: bilateral Sciatica presence: without sciatica Qualified Code(s): M54.50 - Low back pain, unspecified; G89.29 - Other chronic pain Plan: The plan for managing osteoarthritis includes obtaining an MRI of the lumbar spine to further evaluate the condition, pending insurance approval. The patient is advised to continue with physical therapy exercises and to monitor kidney function due to Aleve use. A referral to Dr. Snider will be made following the MRI results. Plan I discussed with the patient the diagnosis of osteoarthritis and the importance of obtaining an MRI to further evaluate the lumbar spine condition. We talked about the need to monitor kidney function due to Aleve use and the continuation of physical therapy exercises. I also recommended considering flu and COVID-19 vaccinations for preventative health. Orders: Orders Lipid Panel Today E78.5 - Hyperlipidemia, unspecified Comprehensive Met. 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 - Monitor kidney function with upcoming blood work due to Aleve use. - Await MRI scheduling and follow up with Dr. Alan's after results are availa ble. - Consider getting flu and COVID-19 vaccinations.
--- OUTSIDE RECORDS SUMMARY | 2025-06-11 09:46 | XMS_ITS | Patient Health Record ---
Author Organization [facility] Address [address] [place] [address] Care Team Providers Care Clinic Physician Director Name Role Phone Amadou (RETIRED) Jd THACKER Primary Care Provide r Reilly Ibrahim Jr Unavailable [phone] Reason For Referral No Information Medications Medication SIG (Take, Route, Fr equency, Duration) Notes Start Date End Date Status Zocor 40 MG 1 tablet in the even ing Orally Once a day Active Lisinopril 5 MG 1 tablet Orally Once a day Active Flonase 50 MCG/ACT 1 spray in each nost ril Nasally Once a day Active MoviPrep 100 GM as directed before c olonoscopy Orally; Duration: 1 dose 07/09/2014 Active Aspirin 81 MG 1 tablet Orally Once a day Active Benadryl 25 MG 1 capsule as needed Orally every 6 hrs Active Social History Tobacco Use: Social History Observation Description Date Details (start date - stop date) Never Smoker NA - NA Tobacco Use/Smoking Question Answer Notes Patient is a nonsmoker Alcohol Screen Question Answer Notes Did you have a drink contain ing alcohol in the past year? Yes How often did you have a dri nk containing alcohol in the past year? Monthly or less (1 point) How many drinks did you have on a typical day when you were drinking in the past year? 1 or 2 drinks (0 point) How often did you have 6 or more drinks on one occasion in the past year? Never (0 point) Points 1 Interpretation Negative Problems Problem Type SNOMED Code ICD Code Onset Dates Problem Status W/U Status Risk Notes Problem Colon cancer screening (163079619) Colon cancer screening (V76.51) Active confirmed Plan Of Treatment Future Test Test Name Order Date COLONOSCOPY 07/09/2014 Insurance Providers Payer Name Payer Address Payer Phone Subscriber Number Group Number Insured Name Patient Relationship to Insured Coverage Start Date Coverage End Date [facility] [address] [facility] [place], [place] [phone] [id number] ENOC MURPHY Self - patient is the insured Medical (General) History Medical History History ICD Code Colonoscopy, 2007, tubular adenoma, hype rplastic polyp Hypertension Elevated cholesterol Environmental allergies Denies [place],DM,CVA,Lung disease,renal dise ase Surgical History Surgery Date(Month/Year) Tonsillectomy in 1947 Dental extractions
== END 2025-06-11 09:47 | disposition home or self-care (01) ==
LOC: HO.HMCHD 09:00
PROVIDERS: PCP Internal Medicine; Visit Provider Physician Assistant Medical
DX: I10 Essential (primary) hypertension (principal); E78.00 Pure hypercholesterolemia, unspecified; M54.50 Low back pain, unspecified; G89.29 Other chronic pain

== ENCOUNTER 2025-06-11 09:49 | Outpatient (REF) | payer OTHER, SELFPAY ==
[2025-06-11 13:28] LABS: Hematocrit 45.1 % (42.0-52.0); Hemoglobin 14.7 g/dl (14.0-18.0); Mean Corpuscular HGB Conc 32.6 g/dl (31.0-36.0); Mean Corpuscular Hemoglobin 28.7 pg (27.0-33.0); Mean Corpuscular Volume 87.9 fL (80.0-98.0); NRBC Abs Auto 0.000 X10*3/uL (0.0-0.012); NRBC Pct Auto 0.0 /100WBC (0.0-0.2); Platelet Count 199 X10*3/uL (160-400); Red Blood Count 5.13 X10*6/uL (4.60-5.80); White Blood Count 6.2 X10*3/uL (4.8-10.8)
[2025-06-11 14:11] LABS: Alanine Aminotransferase 47 U/L (0-40); Albumin Level 4.4 g/dL (3.5-5.0); Alkaline Phosphatase 66 U/L (39-117); Anion Gap 10 (12-20); Aspartate Amino Transferase 45 U/L (5-37); Blood Urea Nitrogen 11 mg/dL (9-16); Calcium 9.0 mg/dL (8.4-10.2); Carbon Dioxide 30 mmol/L (22-29); Chloride 104 mmol/L (96-108); Cholesterol 174 mg/dL (<200); Estimated Glomerular Filt Rate > 60; HDL Cholesterol 67 mg/dL (>40); Potassium 4.5 mmol/L (3.3-5.1); Sodium 139 mmol/L (135-145); Total Protein 6.5 g/dL (6.5-8.0); Triglycerides 79 mg/dL (<150)
== END 2025-06-11 09:50 | disposition home or self-care (01) ==
LOC: HO.10HDL 09:49
PROVIDERS: Visit Provider Physician Assistant Medical
DX: E78.5 Hyperlipidemia, unspecified (principal); I10 Essential (primary) hypertension; Z79.899 Other long term (current) drug therapy
CPT/HCPCS: 36415; 80053; 80061; 85027

== ENCOUNTER 2025-06-18 12:56 | Outpatient (AMB) | payer OTHER, SELFPAY ==
[2025-06-18 13:38] VITALS: BP 140/70; PULSE 84; TEMP 36.6; O2SAT 97; BMI 27.2
--- NOTE | 2025-06-18 13:38 | AM.OFFWIN_ITS ---
Intake Vital Signs 06/18/25 13:38 Height 5 ft 7 in Weight 174 lb BMI 27.2 BP 140/70 H Blood Pressure Location Rt brachial Position Sitting Pulse 84 Pulse Source Pulse Oximeter Temp 97.9 F Temp Source Oral Pulse Oximetry (%) 97 Oxygen Delivery Method Room Air Intake Visit Reasons: EP Muscle pain on right arm/ discomfort Intake Note: The EP has got muscle pain due to lifting weight and physiotherapy. The pain associates with the movements. Patient Tobacco Use Status: Former Tobacco user Allergies ruby Allergy (Intermediate, Uncoded 06/18/25 14:05) Sneezing Do you need a note to return to daycare/school/sports/work: No HPI HPI Comments History of Present Illness Details History of Present Illness - The patient is an 80-year-old male pre senting with right shoulder pain. - The shoulder pain began after heavy li fting activities in May, including removing air conditioners and starting a lawnmower. - The pain is described as moderate achi ness in the muscle area, not involving the bone. - The patient has a history of two torn biceps muscles many years ago that were not surgically repaired. - The pain has become more prominent ove r the past week, especially when trying to sleep or move the shoulder in certain positions. - The patient has tried lidocaine patche s with minimal relief. - The patient is also experiencing lower back pain, for which an MRI is planned due to suspected arthritis. - The patient has a history of a fall on ice in September, which may have contributed to the shoulder issues. Review of Systems - Musculoskeletal: Reports right shoulde r pain, worsened by certain movements, and lower back pain. Denies elbow pain. - Cardiovascular: Reports hypertension. Denies chest pain or palpitations. - Gastrointestinal: Denies any gastroint estinal symptoms. All systems reviewed and are unremarkable except as noted in HPI Physical Exam General: Cooperative, healthy appearing, comfortable, no acute distress and well developed Orientation: Patient oriented x3 Limitations: Moderate limitation in right shoulder movement due to pain Head: Normal to inspection Ears: Hearing grossly normal bilaterally Nose: Normal External nose present Face and sinus: Normal facial exam Eyes: Appearance normal, both eyes and all related structures Neck: Normal visual inspection and Yes full ROM Respiratory: Normal respiratory effort and able to speak in complete sentences. Skin: No rashes or lesions noted Neuro: Patient oriented x3 Extremities: Clavicles equal bilaterally. no TTP AC joint. Right shoulder with full ROM, negative empty can, negative lift off, no skin changes, TTP along deltoid and bicep muscles, no TTP medial and lateral epicondyle, full ROM right elbow, no skin changes right elbow. [facility] Medical History Essential hypertension Hyperlipidemia Low back pain Surgical History History of colonoscopy (~11/07/14) Family History (Updated 06/11/25 @ 09:08 by Jena Roland MA) Mother No problems noted. Father No problems noted. Social History Housing: House Patient Tobacco Use Status: Former Tobacco user e-Cigarette/Vaping Use: Former Use service: No Current occupational status: retired Cognitive needs: Yes (cane) Hearing needs: No Vision needs: No Physical Exam Vital Signs: Last Vital Signs Temp 97.9 F 06/18/25 13:38 Pulse 84 06/18/25 13:38 BP 140/70 H 06/18/25 13:38 Pulse Ox 97 06/18/25 13:38 Oxygen Delivery Method Room Air 06/18/25 13:38 BMI result Body Mass Index 27.2 Assessment & Plan Assessment & Plan (1) Deltoid tendinitis: Code(s): M75.80 - Other shoulder lesions, unspecified shoulder Qualifiers: Laterality: right Qualified Code(s): M77.8 - Other enthesopathies, not elsewhere classified Plan: Patient was informed and verbally consented to the use of an ambient scribe for clinic note documentation during this visit. - Recommended use of Voltaren gel (diclofenac) for topical anti-inflammatory effect. Also sent PO mediation for use around the clock for 2-3 days then use as needed. - Advised rest and application of ice to reduce inflammation. - Referral to orthopedics for further evaluation if symptoms persist. (2) Biceps muscle strain: Code(s): S46.219A - Strain of muscle, fascia and tendon of other parts of biceps, unspecified arm, initial encounter Qualifiers: Encounter type: initial encounter Laterality: right Qualified Code(s): S46.211A - Strain of muscle, fascia and tendon of other parts of biceps, right arm, initial encounter Plan: as above Orders: Referrals Orthopedics Referral M75.80 - Other shoulder lesions, unspecified shoulder, S46.219A - Strain of muscle, fascia and tendon of other parts of biceps, unspecified arm, initial encounter Medications: New diclofenac sodium 50 mg PO Q12H PRN 20 tabs 0RF pain Coding Level of Care Code Est Pt Level 3 (55630) Diagnoses Deltoid tendinitis of right shoulder M77.8 Laterality: right Strain of right biceps muscle, initial encounter S46.211A Encounter type: initial encounter Laterality: right
--- OUTSIDE RECORDS SUMMARY | 2025-06-18 18:05 | XMS_ITS | Patient Health Record ---
Author Organization [facility] Address [address] [place] [address] Care Team Providers Care Teacher Of Gifted Students Name Role Phone Amadou (RETIRED) Jd THACKER Primary Care Provide r Reilly Ibrahim Jr Unavailable Reason For Referral No Information Medications Medication [...] Status Risk Notes Problem Colon cancer screening ([id number]) Colon cancer screening (V76.51) Active confirmed Plan Of Treatment Future Test Test Name Order Date COLONOSCOPY 07/09/2014 Insurance Providers Payer Name Payer Address Payer Phone Subscriber Number Group Number Insured Name Patient Relationship to Insured Coverage Start Date Coverage End Date [facility] [address] [facility] [place], [place] [phone] [id number] ENOC MURPHY Self - patient is the insured Medical (General) History Medical History History ICD Code Colonoscopy, 2007, tubular adenoma, hype rplastic polyp Hypertension Elevated cholesterol Environmental allergies Denies [place],DM,CVA,Lung disease,renal dise ase Surgical History Surgery Date(Month/Year) Tonsillectomy in 1947 Dental extractions
== END 2025-06-18 14:29 | disposition home or self-care (01) ==
PROVIDERS: PCP Physician Assistant Medical; Visit Provider Physician Assistant
DX: M77.8 Other enthesopathies, not elsewhere classified (principal); S46.211A Strain of muscle, fascia and tendon of other parts of biceps, right arm, initial encounter

== ENCOUNTER 2025-07-26 09:01 | Outpatient (REF) | payer OTHER, SELFPAY ==
--- NOTE | ~2025-07-26 | MR_ITS ---
CLINICAL HISTORY: M54.50 - Low back pain, unspecified Examination: MRI lumbar spine without intravenous contrast Comparison: None Findings: Plain radiograph correlation: None available. Less than 3 mm degenerative spondylolisthesis L1 through L5. The vertebral body heights are well maintained. No acute or chronic compression deformities are present. The marrow signal is unremarkable. The anterior posterior longitudinal ligament and interspinous ligament are preserved. Paravertebral soft tissues within normal limits. Imaged portion of the retroperitoneum unremarkable. Sacroiliac joints appear normal. The conus demonstrates normal caliber and signal intensity and terminates at L1 level. . Individual intervertebral disc levels as follows: L1-L2: Moderate loss of disc space height.Subarticular disc herniations. Degenerative facet hypertrophy.Moderate central and foraminal stenosis with dorsal and ventral compression of the thecal sac. L2-L3: Mild loss of disc space height.Subarticular disc herniations and degenerative facet hypertrophy bilaterally.Moderate to severe central and foraminal stenosis.There is impingement of the descending and exiting nerve roots bilaterally at this level. L3-L4: Mild loss of disc space height.Subarticular disc herniations degenerative facet hypertrophy and ligamentum flavum thickening.There is moderate central and mild foraminal stenosis bilaterally with minimal nerve root impingement. L4-L5: Moderate loss of disc space height.Subarticular disc herniations degenerative facet hypertrophy and ligamentum flavum thickening causing mild central spinal canal stenosis. There is foraminal stenosis and impingement of L4 exiting nerve roots bilaterally. L5-S1: Significant loss of disc space height.Subarticular disc herniations and degenerative facet hypertrophy is encroaching on the neural foramina.There is impingement of L5 exiting nerve roots bilaterally. T12-L1: Normal disc height and signal with no discogenic changes. No disc bulge protrusion or extrusion. No central or foraminal stenosis or thecal sac compression. Impression: 1. No compression fractures. Mild degenerative spondylolisthesis at all lumbar levels. Normal lumbar lordosis. 2. Multilevel degenerative disc disease and degenerative spondylosis with central and foraminal stenosis and nerve root impingement as described. This document has been electronically signed by: Alex Davis MD on 07/26/2025 10:35:44
--- OUTSIDE RECORDS SUMMARY | 2025-07-26 09:04 | XMS_ITS | Patient Health Record ---
Author Organization [facility] Address [address] [place] [address] Care Team Providers Care Java Support Engineer Name Role Phone Amadou (RETIRED) Jd THACKER Primary Care Provide r Reilly Ibrahim Jr Unavailable Reason For Referral No Information Medications Medication SIG (Take, Route, Frequency, Duration) Notes Start Date End Date Status Zocor 40 MG Tablet 1 tablet in the even ing Orally Once a day Active Lisinopril 5 MG Tablet 1 tablet Orally O nce a day Active Flonase 50 MCG/ACT Suspension 1 spray in each nostril Nasally Once a day Active MoviPrep 100 GM Solution Reconstituted as directed before colonoscopy Orally; Duration: 1 dose 07/09/2014 Active Aspirin 81 MG Tablet Chewable 1 tablet Orally Once a day Active Benadryl 25 MG Capsule 1 capsule as need ed Orally every 6 hrs Active Social History Social History Additional Details Category Social Info Options Details Miscellaneous: Marital status: single Occupation: works at [employer], works part-time Problems Problem Type SNOMED Code ICD Code Onset Dates Problem Status W/U Status Risk Notes Problem Information temporarily unavailable Colon cancer screening (V76.51) Active confirmed Plan Of Treatment Future Test Test Name Order Date COLONOSCOPY 07/09/2014 Insurance Providers Payer Name Payer Address Payer Phone Subscriber Number Group Number Insured Name Patient Relationship to Insured Coverage Start Date Coverage End Date [facility] [address] [facility] [phone] [id number] ENOC MURPHY Self - patient is the insured Medical (General) History Medical History History ICD Code Colonoscopy, 2007, tubular adenoma, hype rplastic polyp Hypertension Elevated cholesterol Environmental allergies Denies [place],DM,CVA,Lung disease,renal dise ase Surgical History Surgery Date(Month/Year) Tonsillectomy in 1947 Dental extractions
== END 2025-07-26 09:02 | disposition home or self-care (01) ==
LOC: HO.MRI 09:01
PROVIDERS: PCP Physician Assistant Medical; Visit Provider Physician Assistant Medical
DX: M54.50 Low back pain, unspecified (principal); G89.29 Other chronic pain
CPT/HCPCS: 72148

== ENCOUNTER → 2025-07-26 09:08 | Outpatient (BNV) | payer OTHER, SELFPAY | PROVIDERS: PCP Physician Assistant Medical; Visit Provider Radiology Diagnostic Radiology | DX: M51.360 Other intervertebral disc degeneration, lumbar region with discogenic back pain only (principal); M43.16 Spondylolisthesis, lumbar region; M47.816 Spondylosis without myelopathy or radiculopathy, lumbar region; M48.061 Spinal stenosis, lumbar region without neurogenic claudication | CPT/HCPCS: 72148 ==

== ENCOUNTER 2025-08-08 08:48 | Outpatient (REF) | payer OTHER, SELFPAY ==
--- NOTE | ~2025-08-08 | XR_ITS ---
EXAMINATION: XR LUMBOSACRAL SPINE CLINICAL INFORMATION: M48.061 - Spinal stenosis, lumbar region without neurogenic claudication COMPARISON: Correlated to MRI dated July 26, 2025. TECHNIQUE: Lateral views during neutral, flexion and extension position. AP view. FINDINGS: Multilevel marginal osteophyte formation and endplate sclerosis and decreased intervertebral disc height throughout the axial skeleton. There is a 2 mm anterolisthesis at L4-5 also position which maintains during flexion and extension position. Facet joint hypertrophy at L4-5 and L5-S1. Vascular calcifications, aorta. XR/XR lumbar spine 4V min IMPRESSION: Multilevel thoracolumbar spondylosis. Grade 1 anterolisthesis L4-5 without gross instability. Atherosclerosis disease. Electronically signed by: Eusebio Nicole MD 08/08/2025 10:39 AM YENY ARGUETA
== END 2025-08-08 08:49 | disposition home or self-care (01) ==
LOC: HO.HOSX 08:48
PROVIDERS: PCP Physician Assistant Medical; Visit Provider Physician Assistant
DX: M48.061 Spinal stenosis, lumbar region without neurogenic claudication (principal); M21.379 Foot drop, unspecified foot
CPT/HCPCS: 72110

== ENCOUNTER 2025-08-08 08:48 | Outpatient (AMB) | payer OTHER, SELFPAY ==
--- NOTE | 2025-08-08 08:52 | A.SPINEOV_ITS ---
Vital Signs 08/08/25 09:29 Height 5 ft 8.5 in Weight 175 lb BMI 26.2 Intake Visit Reasons: lbp Intake Note: Mr. Quinn is here today c/o Low back discomfort, stiffness and intermittent aches. [place] done [place] [facility] [place] 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 He is a very nice 80-year-old gentleman presents to the office today for evaluation of 2 separate issues which may or may not be related. The 1st is a back pain that started in May of 2024 that he describes as an achiness in his stiffness but not painful. He rates his pain at about a 3/10. It can be aggravated with activity, but as the day goes on it generally is better and is worse in the morning. He takes Tylenol which he thinks helps. He underwent physical therapy which was not helpful. He has been doing acupuncture as well. A 2nd issue is that he has gait imbalance which started after a fall in October of this year when he slipped on some ice and fell fairly hard onto his shoulder and knee. Since that time he has been unstable often tripping and has occasional falls. No numbness of the lower extremities. No pain radiating down the lower extremities. No cauda equina symptoms. PMH: Relatively healthy, history of hypertension that which is borderline, carpal tunnel, tonsillectomy other than that he has no major systemic disease. History of carpal tunnel release both hands and a tonsillectomy are his only s urgeries. Social hx: Does not smoke, drink use any recreational drugs Medications: Lisinopril, Flonase and Zyrtec for allergies Allergies: None Physical exam: Awake alert oriented no acute distress, he is able to stand up on his own ambulate down the hallways but he does have a Trendelenburg gait. On motor testing he has bilateral footdrop, on the left he can go antigravity barely, on the right he has almost no function I would rate it as 0 to 1/5. Plantar flexion is full strength. Iliopsoas and quadriceps strength are full. Absent reflexes at the Achilles, intact at the patella. Imaging review: Lumbar MRI done at [facility] shows moderate to severe stenosis at L2-3, there is spondylolisthesis at L4-5 with lateral recess narrowing, and grade 1 spondylolisthesis Impression: 80-year-old gentleman presents with 2 separate issues which may or may not be related. The 1st is a back pain that is what he describes as an achiness and stiffness but really not painful. It is worse in the morning but gets better as the day goes on. He has been through some basic conservative treatment in his looking for another direction to go in terms of helping make it a little more tolerable. I do not get the sense he is really looking for surgery. He does have a number of different arthritis issues in his back and these could be addressed with doing some injections. However, the 2nd issue he is relating maybe somehow coming from his spine as well and that is his gait imbalance situation. After he fell in October she had developed bilateral footdrop. He did not develop any sensory symptoms and has no pain going down his legs. He has moderate to severe stenosis at L2-3. In addition to this there is some lateral recess narrowing at L4-5 with a spondylolisthesis grade 1. Either of these 2 areas could potentially cause weakness of the tibialis if injured. We would like to get a lower extremity EMG to evaluate this a little more closely and see if we can localize this to the spine. We will also get a set of flexion-extension x-rays to evaluate the spondylolisthesis at L4-5 to see if there is any signs of instability. If he has segmental mobility at L4-5, that would explain his back pain and his footdrop together. Once the studies are completed we will see him back in the office. Today's imaging and clinical history was reviewed with Dr. Araujo who agrees with the plan as outlined above. Thank you for allowing us to care for your patient. The total time spent with this visit with this patient was 45 minutes reviewing history, physical exam, lumbar imaging review, and implementation of treatment plan or further diagnostic testing Damian Araujo MD,PhD [facility] Orders: Orders NE electromyogram (EMG) Today M21.379 - Foot drop, unspecified foot, M48.061 - Spinal stenosis, lumbar region without neurogenic claudication XR lumbar spine 4V min Today M48.061 - Spinal stenosis, lumbar region without neurogenic claudication Coding Level of Care Code New Pt Level 4 (08013) Diagnoses Footdrop M21.379 Lumbar stenosis M48.061
[2025-08-08 09:29] VITALS: BMI 26.2
== END 2025-08-08 11:23 | disposition home or self-care (01) ==
LOC: HO.HNS 08:49
PROVIDERS: PCP Physician Assistant Medical; Visit Provider Physician Assistant
DX: M21.379 Foot drop, unspecified foot (principal); M48.061 Spinal stenosis, lumbar region without neurogenic claudication
CPT/HCPCS: 99204

== ENCOUNTER → 2025-08-08 10:25 | Outpatient (BNV) | payer OTHER, SELFPAY | PROVIDERS: PCP Physician Assistant Medical; Visit Provider Radiology Diagnostic Radiology | DX: M48.061 Spinal stenosis, lumbar region without neurogenic claudication (principal); M47.815 Spondylosis without myelopathy or radiculopathy, thoracolumbar region | CPT/HCPCS: 72110 ==